=== PATIENT | male | born 1995 | race Caucasian/White ===

== ENCOUNTER 2022-05-09 14:53 | Outpatient (CLI) | payer BC, SELFPAY ==
--- NOTE | 2022-05-10 14:15 | WPDPFTINT ---
PFT Interpretation Lung volumes were measured with the body plethysmography method. Lung volumes are unremarkable. Spirometry showed normal expiratory flow rates and a borderline normal FEV1 to FVC ratio 70%. Following administration of a bronchodilator there was no significant increase in expiratory flow rates. The borderline FEV1 to FVC ratio could be related to disproportionately higher forced vital capacity in relation to FEV1, which is often seen in tall muscular men. The flow volume loop is unremarkable. Lung diffusion capacity is unremarkable as well. Impression: Spirometry, lung volumes, and lung diffusion capacity all within normal range.
== END 2022-05-09 14:54 | disposition home or self-care (01) ==
LOC: ANHPFT 15:02
PROVIDERS: PCP Nurse Practitioner Adult Health; Visit Provider Nurse Practitioner
DX: R06.09 Other forms of dyspnea (principal)
CPT/HCPCS: 94060; 94726; 94729

== ENCOUNTER 2023-07-05 14:20 | Outpatient (CLI) | payer BC, SELFPAY ==
--- NOTE | ~2023-07-05 | CT_ITS ---
EXAMINATION:CT diagnostic chest wo con DATE: 07/05/2023 14:50 INDICATION: Abnormal findings on diagnostic imaging of lung. TECHNIQUE: Computed tomography (CT) of the chest was performed without intravenous contrast. Automate d exposure control and iterative reconstruction technique were employed. The dose-length product (DLP ) was 121.59 mGy-cm. COMPARISON: None. FINDINGS: There is mild scarring at the lung apices. There is a staple line in left lung apex. There is a 3 mm nodule in right lower lobe, likely benign. No pleural effusion. The heart size is normal. N o pericardial effusion. There is bilateral gynecomastia. There is mild cervical spondylosis. IMPRESSION: 1. Mild scarring at the lung apices. Reviewed, dictated and finalized at location E. CHASER
--- NOTE | 2023-07-08 13:06 | P.PCNPFT_ITS ---
PFT Procedure Performed PFT Procedure Performed Spirometry with Pre/Post Bronchodilator Plethysmography (Lung Vol) Diffusing Cap (DLCO) Flow Vol Loop PFT Interpretation This is a pulmonary function test with pre and post-bronchodilator spirometry, plethysmography and diffusing capacity. The test was performed and results interpreted in accordance with the 2019 and 2005 ATS/ERS Task Force guidelines respectively using the Global Lung Function Initiative-2012 reference equations. Patient demonstrated good effort and cooperation. Reproducibility criteria were met. The quality of the pre bronchodilator spirometry maneuver was Grade A and post bronchodilator spirometry maneuver was Grade A. Findings: Spirometry: The contour the inspiratory and expiratory flow tracing are normal. The pre bronchodilator FVC is 7.33 L, 121% predicted. The pre bronchodilator FEV1 is 5.28 L, 106% predicted. The pre bronchodilator FEV1: FVC ratio was 72%. The post bronchodilator FVC is 7.39 L, representing 1% increase. The post bronchodilator FEV1 is 5.50 L, representing a 4% increase. The post bronchodilator FEV1: FVC ratio 75%. Plethysmography: The total lung capacity is 9.09 L, 122% predicted. The functional residual capacity is 5.18 L, 140% predicted. The residual volume is 1.51 L, 87% predicted. Diffusing capacity: The diffusing capacity unadjusted for hemoglobin and carboxyhemoglobin is 36.2, 98% predicted. The diffusing capacity adjusted for alveolar volume is 4.51, 89% predicted. In comparison to previous pulmonary function testing on 05/09/2022 the post bronchodilator FVC is unchanged from 7.36 L to 7.39 L. The post bronchodilator FEV1 is unchanged from 5.33 L to 5.50 L. The total lung capacity is unchanged from 9.27 L to 9.09 L. The functional residual capacity is unchanged from 5.18 L to 5.18 L. The residual volume is decreased from 1.90 L to 1.51 L. The diffusing capacity unadjusted for hemoglobin and carboxyhemoglobin is decreased from 51.1 to 36.2. The diffusing capacity adjusted for alveolar volume is unchanged from 4.22 to 4.51 Impression: The spirometry is normal without evidence of an obstructive abnormality. There is no significant improvement after inhaling a single dose of albuterol. The lung volumes are normal. The diffusing capacity is normal. In comparison to previous pulmonary function testing on 05/09/2022 there has been a greater than anticipated time dependent decrease in the residual volume and the diffusing capacity unadjusted for hemoglobin and carboxyhemoglobin with no significant change in the FVC, FEV1, total lung capacity, functional residual capacity or diffusing capacity adjusted for alveolar volume. Clinical corre lation is recommended.
== END 2023-07-05 14:21 | disposition home or self-care (01) ==
PROVIDERS: PCP Nurse Practitioner Family; Visit Provider Nurse Practitioner
DX: R91.8 Other nonspecific abnormal finding of lung field (principal)
CPT/HCPCS: 71250; 94060; 94726; 94729

== ENCOUNTER 2024-06-26 15:31 | Emergency (ER) | payer BC, SELFPAY ==
--- NOTE | ~2024-06-26 | CT_ITS ---
EXAMINATION: CT diagnostic chest wo con DATE: 06/26/2024 16:41 INDICATION: follow up XR, chest pain TECHNIQUE: Computed tomography (CT) of the chest was performed without intravenous contrast. Addition al 3D reconstructions utilizing coronal maximum intensity projection (MIP) were performed. Automated exposure control and iterative reconstruction technique were employed. The dose-length product was 22 6.50 mGy-cm. COMPARISON: 07/05/2023 FINDINGS: Unchanged mild biapical pleural-parenchymal scarring. Suture line and mild scarring at the posterolat eral left apex. Unchanged small pneumatocele in the right upper lobe. Unchanged likely benign 3 mm ri ght lower lobe nodule. No pneumonia, pulmonary edema, pleural effusion or pneumothorax. Heart size is normal. No pericardial effusion. Normal caliber thoracic aorta. No pathologically enlarged thoracic lymphadenopathy. Bilateral gynecomastia. Moderate spondylosis at C6-C7. IMPRESSION: 1. Mild biapical pleural-parenchymal scarring. No acute cardiopulmonary disease. Reviewed, dictated and finalized at location B. NDER LET OFF HELPER IMPRESSION: 1. Mild biapical pleural-parenchymal scarring. No acute cardiopulmonary disease .
--- NOTE | ~2024-06-26 | XR_ITS ---
XR chest 2V Ordering provider: Jag Denson History: 29 years Male with . right side back pain, hx spontaneous pneumo . Comparison: None. FINDINGS: MEDIASTINUM: The cardiac silhouette is not enlarged. LUNGS: No infiltrates or effusions. Very tiny lucency is seen in the right apical area laterally whic h may be summation shadow or small bulla. PNEUMOTHORAX IS LESS LIKELY. FOLLOW-UP ADVISED. OTHER: No free air under the diaphragm. IMPRESSION: LUCENCY IN THE RIGHT APICAL AREA LATERALLY WHICH MAY BE SUMMATION SHADOW. FOLLOW-UP ADVISED. Reviewed, dictated and finalized at location A. WRAPPER IMPRESSION: LUCENCY IN THE RIGHT APICAL AREA LATERALLY WHICH MAY BE SUMMATION SHADOW. FOLLO W-UP ADVISED.
[2024-06-26 16:02] VITALS: BP 119/68; PULSE 75; RESP 18; TEMP 36.6; O2SAT 100
--- NOTE | 2024-06-26 17:29 | ED.BACK ---
HPI - Back Pain/Injury General Chief Complaint: Back Pain/Injury Stated Complaint: right scapula pain, feels like my pneumo Time Seen by Provider: 06/26/24 17:28 Source: patient Mode of arrival: ambulatory Limitations: no limitations History of Present Illness HPI Narrative: This is a 29-year-old male who presents to the ED for chief complaint of right-sided back /scapular pain x1 day. Patient reports that he has history of pneumothorax and wants to make sure that it is not that. States that he is breathing okay. Pain is worse in certain positions. States that he has not been getting much sleep due to stress with work. He does feel that his muscles are tense. Denies chest pain, fevers, chills, cough, shortness of breath, abdominal pain, nausea, vomiting, numbness, weakness. Related Data Allergies Allergy/AdvReac Type Severity Reaction Status Date / Time No Known Allergies Allergy Unverified 11/03/13 16:31 Review of Systems Review of Systems: All systems as dictated in HPI Exam Narrative: GENERAL: Well-appearing, well-nourished, and in no acute distress. HEAD: Normocephalic, atraumatic. EYES: PERRLA and EOMI. ENT: Nares clear, no rhinorrhea or epistaxis. Mucous membranes moist. Oropharynx without tonsillar hypertrophy exudate or other lesions. NECK: Supple. No adenopathy or masses. CHEST: No respiratory distress. Clear to auscultation. No wheezes rales or rhonchi. HEART: Regular rate and rhythm. No murmur heard. Normal peripheral pulses. ABDOMEN: Soft, nontender, nondistended, normal active bowel sounds. MSK: Normal range of motion. No edema. Mild tenderness to the right scapular area. SKIN: Warm, dry, no rash. NEURO: Alert and oriented x4. No focal deficits. PSYCH: Normal mood and affect. Course Vital Signs Vital signs: Vital Signs Temperature 97.9 F 06/26/24 16:02 Pulse Rate 75 06/26/24 16:02 Respiratory Rate 18 06/26/24 16:02 Blood Pressure 119/68 06/26/24 16:02 Pulse Oximetry 100 06/26/24 16:02 Oxygen Delivery Room Air 06/26/24 16:02 Temperature 97.9 F 06/26/24 16:02 Pulse Rate 75 06/26/24 16:02 Respiratory Rate 18 06/26/24 16:02 Blood Pressure 119/68 06/26/24 16:02 Pulse Oximetry 100 06/26/24 16:02 Oxygen Delivery Room Air 06/26/24 16:02 MDM - Back Pain/Injury MDM Narrative Medical decision making narrative: This is a 29-year-old male who presents to the ED for chief complaint of right scapular pain. He has history of pneumothorax and wanted make sure he was not having another. Vitals are normal. Exam shows tenderness to the right posterior thoracic wall /scapular area. There is no associated chest pain or dyspnea. Chest x-ray: IMPRESSION: LUCENCY IN THE RIGHT APICAL AREA LATERALLY WHICH MAY BE SUMMATION SHADOW. FOLLOW-UP ADVISED. CT Chest without contrast: IMPRESSION: 1. Mild biapical pleural-parenchymal scarring. No acute cardiopulmonary disease. presentation consistent with musculoskeletal back pain. Low concern for ACS or acute cardiopulmonary process today. Discussed with the patient the results of the CT scan and advise that he follow-up with his doctor/ pulmonology. he has seen pulmonology in the past and is agreeable with this plan. Patient will be discharged in stable condition. Supportive measures discussed and return precautions given. Patient is understanding and agreeable with plan for discharge with PCP follow-up. Discharge Plan Discharge Clinical Impression: Acute right-sided back pain Patient Disposition: Home, Self-Care Condition: Stable Instructions: Antibiotic Form Additional Instructions: Exam and imaging are reassuring. Please take cyclobenzaprine nightly as needed. Can also take Tylenol and ibuprofen every 6 hours as needed for pain. If you have any new or worsening symptoms please return to the ER for further evaluation. Patient Language: Portuguese Prescriptions: New cyclobenzaprine 10 mg tablet 10 mg PO HS PRN (Reason: muscle spasm) Qty: 10 0RF Follow-up/Referrals: PHYSICIAN NOT ON STAFF,NONSTAFF [Primary Care Provider] - Time of Disposition: 17:30
[2024-06-26 17:49] VITALS: BP 132/70; PULSE 82; RESP 18; TEMP 36.2; O2SAT 97
== END 2024-06-26 17:51 | disposition home or self-care (01) ==
LOC: ANHED 17:42
PROVIDERS: Emergency Provider Physician Assistant
DX: M54.9 Dorsalgia, unspecified (principal)
CPT/HCPCS: 71046; 71250; 99284